=== PATIENT | female | born 1970 ===

== ENCOUNTER 2020-12-30 12:45 | Inpatient (IN) | payer OTHER ==
[~2020-12-30] VITALS: Ht 165.1 cm; Wt 53.1 kg
[2021-01-01] MEDS ORDERED: CITRACAL + D E1 EACH (08:02)
[2021-01-01] MEDS ORDERED: VITAMIN D31250 MCG (08:02)
[2021-01-01] MEDS ORDERED: DICYCLOMINE HCL10 MG (08:03)
[2021-01-01] MEDS ORDERED: DOLOGESIC 500-1 EACH (08:03)
[2021-01-01] MEDS ORDERED: FAMOTIDINE20 MG (08:03)
== END 2021-01-03 11:30 | disposition home or self-care (01) | DRG 742 ==
LOC: O/R 12-31 08:53 → OB/GYN 12-31 12:45
PROVIDERS: ADMIT Specialist; ATTEND Specialist
PROC: 0UT90ZZ Resection of Uterus, Open Approach (ICD-10-PCS; 2020-12-31)
PROC: 0WUF0JZ Supplement Abdominal Wall with Synthetic Substitute, Open Approach (ICD-10-PCS; 2020-12-31)
PROC: 0UT70ZZ Resection of Bilateral Fallopian Tubes, Open Approach (ICD-10-PCS; 2020-12-31)
PROC: 07BC0ZZ Excision of Pelvis Lymphatic, Open Approach (ICD-10-PCS; 2020-12-31)
PROC: 0DBU0ZZ Excision of Omentum, Open Approach (ICD-10-PCS; 2020-12-31)
PROC: 0UT20ZZ Resection of Bilateral Ovaries, Open Approach (ICD-10-PCS; principal; 2020-12-31 12:45)
PROC: 30233N1 Transfusion of Nonautologous Red Blood Cells into Peripheral Vein, Percutaneous Approach (ICD-10-PCS; 2021-01-02)
DX: N80.1 Endometriosis of ovary (principal); D62 Acute posthemorrhagic anemia; K43.2 Incisional hernia without obstruction or gangrene; N73.6 Female pelvic peritoneal adhesions (postinfective); N83.291 Other ovarian cyst, right side; N83.11 Corpus luteum cyst of right ovary; N94.89 Other specified conditions associated with female genital organs and menstrual cycle; N83.8 Other noninflammatory disorders of ovary, fallopian tube and broad ligament; R19.00 Intra-abdominal and pelvic swelling, mass and lump, unspecified site